=== PATIENT | female | born 1955 | race Caucasian/White ===

== ENCOUNTER 2023-05-29 12:06 | Emergency (ER) | payer MEDICARE, BC, SELFPAY ==
[2023-05-29 12:07] VITALS: BP 190/80
[2023-05-29] MEDS: NSS 500 IV (13:23)
[2023-05-29] MEDS: PEPCID 20 MG IV (13:24)
[2023-05-29] MEDS: BENADRYL 25 MG IV (13:24)
[2023-05-29] MEDS: DECADRON 10 MG IV (13:24)
[2023-05-29 13:57] VITALS: BP 128/56
--- NOTE | 2023-05-29 13:58 | ED.GENMED ---
History of Present Illness
<Mo Bruce MD - Last Filed: 05/29/23 14:01>
General
Chief Complaint: Skin Problem
Source: patient
Exam Limitations: none
Time Seen by Provider: 05/29/23 12:16
Nursing documentation reviewed up to this point in time: agreed with
Travel History
Have you had any contact with someone who has COVID-19?: No
Do you have any symptoms of coronavirus? Fever > 100 degrees, chills, cough, shortness of breath, sore throat, loss of taste or smell, muscle aches, or headache?: No
History of Present Illness
History of Present Illness:
Patient presents to ED secondary to worsening itchy rash over the past 5 days, unrelieved with taking Benadryl at home. Patient states that her rash started near her groin, on day 9 of Augmentin, which she was taking for upper respiratory
infection. Augmentin since that has been discontinued. Patient states that 'long time ago', patient had similar reaction to unknown medication. Denies fever. Denies chest pain or shortness of breath. Denies throat swelling sensation. Denies
nausea or vomiting. Denies dizziness.
Physical Exam
General: no apparent distress, not acutely ill. afebrile
Head: nc/at. eomi
Neck: supple. no meningeal signs.
Heart: s1/s2 regular rate and rhythm, no murmur. equal radial pulses.
Lungs: no acute respiratory distress. clear bilaterally
Abdomen: normal bowel sounds. not tender.
Neuro: alert and oriented. no focal neurological deficits
Skin: generalized hives noted over UE/LE/chest/back/face.
Psychiatric: well kept. interactive and cooperative
Extremities: no edema. no calf tenderness.
History and exam consistent with likely allergic reaction to Augmentin. Patient will be treated with IV steroids, Benadryl, Pepcid, and IV fluids, and reassessed.
<Kait Roberto PA-C - Last Filed: 05/29/23 18:11>
Physical Exam
Physical Exam:
General: Well appearing, in no apparent distress and non-toxic, vital signs reviewed -patient afebrile
HEENT: Atraumatic, normocephalic; pupils equal round reactive light bilaterally, extraocular muscle intact, no edema or erythema of posterior pharynx, no lesions of hard palate, oral cavity or under tongue, protecting airway
Neck: appears supple, no meningeal signs
CV: Regular rate rhythm, heart sounds normal, no evidence of cyanosis
Resp: No evidence of respiratory stress, lungs no accessory muscle use
Abd: Soft, nontender non-distended
Extremities: No deformities, no evidence of cyanosis; some bilateral nonpitting edema chronic per patient
Neuro: alert and oriented, speech normal, no focal neurologic deficits
Psych: Normal affect
Skin: Intact, generalized hives scattered across upper extremity, lower extremity, chest, back, face without any mucosal involvement; no vesicles or blistering of skin, no sloughing skin
Course
<Mo Bruce MD - Last Filed: 05/29/23 14:01>
Orders/Labs/Results
Orders:
Orders
05/29/23 12:38
0.9% Sodium Chloride 500 ml [Nss] 500 ml IV BOLUS
Dexamethasone Sod Phosphate [Decadron] 10 mg IV NOW STA
Diphenhydramine [Benadryl] 25 mg IV NOW STA
Famotidine [Pepcid] 20 mg IV NOW STA
Vital Signs
Initial and Last Documented VS:
Initial Vital Signs
Temp Pulse Resp BP Pulse Ox
97.9 F 98 18 190/80 98
05/29/23 12:07 05/29/23 12:07 05/29/23 12:07 05/29/23 12:07 05/29/23 12:07
Last Documented Vital Signs
Temp Pulse Resp BP Pulse Ox
97.9 F 75 18 128/56 99
05/29/23 12:07 05/29/23 13:57 05/29/23 12:07 05/29/23 13:57 05/29/23 13:57
<Kait Roberto PA-C - Last Filed: 05/29/23 18:11>
Orders/Labs/Results
Orders:
Orders
05/29/23 12:38
0.9% Sodium Chloride 500 ml [Nss] 500 ml IV BOLUS
Dexamethasone Sod Phosphate [Decadron] 10 mg IV NOW STA
Diphenhydramine [Benadryl] 25 mg IV NOW STA
Famotidine [Pepcid] 20 mg IV NOW STA
Vital Signs
Initial and Last Documented VS:
Initial Vital Signs
Temp Pulse Resp BP Pulse Ox
97.9 F 98 18 190/80 98
05/29/23 12:07 05/29/23 12:07 05/29/23 12:07 05/29/23 12:07 05/29/23 12:07
Last Documented Vital Signs
Temp Pulse Resp BP Pulse Ox
97.9 F 75 18 128/56 99
05/29/23 12:07 05/29/23 13:57 05/29/23 12:07 05/29/23 13:57 05/29/23 13:57
<Kait Roberto PA-C - Last Filed: 05/29/23 18:11>
MDM/Problems Addressed
Differential Diagnosis Includes:
Drug reaction, urticaria, erythema multiforme, etc.
MDM/Problems Addressed:
Patient is a 60-year-old female history asthma presenting for evaluation of rash which started 9 days after starting Augmentin. She was prescribed Augmentin on October 13 for upper respiratory infection. She was on day 9 of course and rash. Denies
been worsening and spreading since. She stopped Augmentin when rash was initially noticed. But it has continued to worsen over the past 3 days. Rash is itchy. She denies any pain in her mouth or dysuria. No chest pain, shortness of breath. She
has no known drug allergies. Physical exam as documented above. Patient is hemodynamically stable on arrival, afebrile. She is in no apparent distress. There is an erythematous, macular, generalized rash scattered on bilateral extremities,
trunk, back, face. This appears either consistent with hives versus erythema multiforme. There is no petechial component. There is no mucosal involvement. As patient is already stopped likely offending drug�will treat patient with IV Decadron,
IV Benadryl, IV famotidine. Will give IV fluids. Will reassess
On reassessment�patient states itchiness has improved significantly. No significant change in rash on reassessment. She has remained stable in emergency department and is feeling much better than arrival. She is stable for discharge with close
return precautions, course of steroid and hydroxyzine as needed for itch outpatient. She should follow with primary care in a few days to ensure rash is resolving. Lengthy discussion with patient regarding progression of rash, red flag rash
symptoms for prompt return. Patient is comfortable this plan. All questions answered
Chronic conditions affecting care:
Asthma
Acute Exacerbation and/or Progression of Chronic Illness:
Drug induced rash, hives
<Kait Roberto PA-C - Last Filed: 05/29/23 18:11>
*Pulse Oximetry
Patient hypoxic: no
*Electrocardiogram Technician Interpretation
Rate: Electrocardiogram Technician- N/A
*Critical Care Note
Total Time (30-74mins, 75-104mins- exclusive of procedures): Not Applicable
ED Attending Note
<Mo Bruce MD - Last Filed: 05/29/23 14:01>
-
Portions of this chart may have been created with voice recognition software.� Occasional wrong word or��sound alike� substitutions may have occurred due to the inherent limitations of voice recognition software.
Discharge Plan
Departure
Patient Disposition: Home (Routine Discharge)
Date of Disposition: 05/29/23
Time of Disposition: 14:47
Patient with high blood pressure during this ER visit?: Yes
Condition: Good
Covid-19: Not Applicable
Discharge Problem:
Rash, skin
Instructions: Skin Rash (DC), Hives (DC), BLOOD PRESSURE
Prescriptions:
New
methylprednisolone 4 mg tablets,dose pack
See Rx Instructions .ROUTE .COMPLEX Qty: 21 0RF
Rx Instructions:
orally per package directions
hydroxyzine HCl 25 mg tablet
25 mg PO HS PRN (Reason: itching) Qty: 14 0RF
Referrals:
Lenny Bermudez DO [Family Provider] - Follow up in 2-3 days
Activity Restrictions/Additional Instructions:
-Return to the emergency department with any shortness of breath, significant worsening in rash, blistering of skin, peeling of skin, any spread of rash to oral/ mucosal involvement, high fevers, worsening in current symptoms, or any other concerns
-Your prescriptions have been sent to your pharmacy. You received your first dose of steroid in the emergency department today. You can start the methyprednisolone tomorrow.
-Hydroxyzine can be taken at bedtime as needed for itch. This may cause drowsiness.
-Follow-up with primary care in a few days to ensure that rash is improving
Interventions
Interventions:
*Risk Screen - Suicide Last Done: 05/29/23 15:12
*General Assessment Last Done: 05/29/23 12:07
*Neglect/Abuse Screening Last Done: 05/29/23 15:12
ED- Fall Risk Assessment Last Done: 05/29/23 15:12
*ED COVID-19 Vaccine History Last Done: 05/29/23 12:07
*Nursing Disposition Last Done: 05/29/23 15:12
ED-Skin Assessment Last Done: 05/29/23 15:12
Discharge Date and Time
Discharge Date/Time: 05/29/23 15:13
== END 2023-05-29 15:13 | disposition home or self-care (01) ==
LOC: EMR 12:06
PROVIDERS: EMERGENCY PHYSICIAN Emergency Medicine; FAMILY PHYSICIAN Family Medicine
DX: R21 Rash and other nonspecific skin eruption (principal); L29.9 Pruritus, unspecified; R03.0 Elevated blood-pressure reading, without diagnosis of hypertension; J06.9 Acute upper respiratory infection, unspecified
CPT/HCPCS: 99284; 96374; 96375 ×2; 96361